=== PATIENT | male | born 1960 | race Caucasian/White ===

== ENCOUNTER 2016-10-27 01:56 | Emergency (ER) | payer BC ==
[2016-10-27] MEDS ORDERED: NORMAL SALINE 1000 ML 1,000 ML IV ONE (03:30)
--- NOTE | 2016-10-27 03:35 | ER Document Report ---
ED General - General Chief Complaint: Head Injury without LOC Stated Complaint: HEAD INJURY Time Seen by Provider: 10/27/16 03:20 Notes: Patient is a 56-year-old male presents with complaint of cramping into the muscles his arms and legs. Been worse at night. She felt a little bit dizzy as well. He thought this may be related to the fact that he hit his head. He says that on Sunday he stood up quickly and hit his head against a cabinet. He denies any new neck pain. He says he has some chronic neck soreness which is unchanged. Patient says she has had just a very mild headache that is intermittent. He is not on blood thinners other than an aspirin. He denies any bruising or swelling to his head. 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 He says there is no air-conditioning. He says it has been hot and he has been sweating while working all day in the shop. No weakness that is worse on the right or left side . No occult ambulating. No vomiting. No other complaints at this time. TRAVEL OUTSIDE OF THE [place] IN LAST 30 DAYS: No Past Medical History - Social History Smoking Status: Never Smoker Frequency of alcohol use: None Drug Abuse: None Family History: Reviewed & Not Pertinent Patient has suicidal ideation: No Patient has homicidal ideation: No Renal/ Medical History: Denies: Hx Peritoneal Dialysis Review of Systems - Review of Systems Notes: My Normal Review Basic REVIEW OF SYSTEMS: CONSTITUTIONAL : Denies fever, chills, or sweats. Denies recent illness.ENT: Denies eye, ear, throat, or mouth pain or symptoms. Denies nasal or sinus congestion. CARDIOVASCULAR: Denies chest pain. RESPIRATORY: Denies cough, cold, or chest congestion. Denies shortness of breath, difficulty breathing, or wheezing. GASTROINTESTINAL: Denies abdominal pain. Denies nausea, vomiting, or diarrhea. Denies constipation. Last BM: GENITOURINARY: Denies difficulty urinating, painful urination, burning, frequency, or blood in urine. MUSCULOSKELETAL: muscle cramps SKIN: Denies rash or skin lesions. HEMATOLOGIC : Denies easy bruising or bleeding. LYMPHATIC: Denies swollen, enlarged glands. NEUROLOGICAL: Denies altered mental status or loss of consciousness. Had a headache. Denies weakness or paralysis or loss of use of either side. Denies problems with gait or speech. Denies sensory or motor loss. ALL OTHER SYSTEMS REVIEWED AND NEGATIVE. Physical Exam - Vital signs Vitals: Temp Pulse Resp BP Pulse Ox 97.7 F 65 18 133/78 H 100 10/27/16 02:14 10/27/16 02:14 10/27/16 02:14 10/27/16 02:14 10/27/16 02:14 - Notes Notes: General Appearance: Well nourished, alert, cooperative, no acute distress, no obvious discomfort. Vitals: reviewed, See vital signs table. Head: no swelling or tenderness to the head Eyes: PERRL, EOMI, Conjuctiva clear Neck: Supple, no reproducible neck tenderness to palpation, Lungs: No wheezing, No rales, No rhonci, No accessory muscle use, good air exchange bilaterally. Heart: Normal rate, Regular rythm, No murmur, no rub Abdomen: Normal BS, soft, No rigidity, No abdominal tenderness, No guarding, no rebound, no abdominal masses, no organomegaly Extremities: strength 5/5 in all extremities, good pulses in all extremities, no swelling or tenderness in the extremities, no edema. Skin: warm, dry, appropriate color, no rash Neuro: speech clear, oriented x 3, normal affect, responds appropriately to questions. Cranial nerves II through XII are intact. Distal sensation intact. Patient moves all extremities without difficulty. Normal gait. Course - Re-evaluation Re-evalutation: 10/27/16 05:37 Patient has received IV fluids. He is feeling better. I did discuss with him CT scan of the head versus no CT scan of the head. At home that we can order CT scan of his head however I do not feel it is indicated at this time being that his injury occurred a week ago, he has not had any vomiting, and no loss of consciousness, and the mechanism of injury is very low. He is also not on any blood thinners and has no history of bleeding disorders. He has no swelling or bruising to the head. The symptoms the patient was concerned with her bilateral and seem to be involved more with muscle cramping than anything else. I suspect this is more likely related to the fact that he has been working in a hot environment without air conditioning for the last several days. This is why give him IV fluids and check his electrolytes. Electrolytes are normal. I informed patient to stay out of the heat for the next few days. I informed him he should return to ER immediately for severe headache, vomiting , or feels unwell. I encouraged him to follow-up with his doctor this coming week. Patient agrees with plan and will be discharged home. Dictation of this chart was performed using voice recognition software; therefore, there may be some unintended grammatical errors. - Vital Signs Vital signs: Temp Pulse Resp BP Pulse Ox 97.7 F 65 18 133/78 H 100 10/27/16 02:14 10/27/16 02:14 10/27/16 02:14 10/27/16 02:14 10/27/16 02:14 - Laboratory Result Diagrams: 10/27/16 03:50 10/27/16 03:50 Laboratory results interpreted by me: 10/27/16 10/27/16 03:50 03:50 RBC 4.27 L Basophils % 2.6 H BUN 25 H Discharge - Discharge Clinical Impression: Muscle cramps, Weakness Minor head injury without loss of consciousness Qualifiers: Encounter type: initial encounter Qualified Code(s): S09.90XA - Unspecified injury of head, initial encounter Condition: Good Disposition: HOME, SELF-CARE Additional Instructions: Please stay out of the heat over the next few days and drink lots of clear liquids. Please return to the ER if you have worsening of your symptoms, fevers , recurrent muscle cramping, any vomiting, or severe headache. Please follow up with your physician on Sunday for reevaluation. Referrals: TAMI PUGH MD [Primary Care Provider] - 10/30/16
[2016-10-27 04:07] LABS: ABSOLUTE BASOPHILS # (AUTO) 0.1 10^3/uL (0.0-0.2); ABSOLUTE EOSINOPHILS # (AUTO) 0.2 10^3/uL (0.0-0.6); ABSOLUTE LYMPHOCYTES (AUTO) 0.8 10^3/uL (0.5-4.7); ABSOLUTE MONOCYTES (AUTO) 0.4 10^3/uL (0.1-1.4); ABSOLUTE NEUT (AUTO) 3.1 10^3/uL (1.7-8.2); BASOPHILS % (AUTO) 2.6 % (0-2); EOSINOPHILS % (AUTO) 3.7 % (0-6); HEMATOCRIT 40.7 % (37.9-51.0); HEMOGLOBIN 13.7 g/dL (13.5-17.0); HGB HCT DIFFERENCE 0.4; LYMPHOCYTES % (AUTO) 16.9 % (13-45); MEAN CORPUSCULAR HEMOGLOBIN 32.1 pg (27.0-33.4); MEAN CORPUSCULAR HGB CONC 33.7 g/dL (32.0-36.0); MEAN CORPUSCULAR VOLUME 95 fl (80-97); MONOCYTES % (AUTO) 8.9 % (3-13); RED BLOOD COUNT 4.27 10^6/uL (4.35-5.55); SEGMENTED NEUTROPHILS % (AUTO) 67.9 % (42-78); WHITE BLOOD COUNT 4.6 10^3/uL (4.0-10.5)
[2016-10-27 04:25] LABS: ANION GAP 9 (5-19); BLOOD UREA NITROGEN 25 mg/dL (7-20); CALCIUM 9.2 mg/dL (8.4-10.2); CARBON DIOXIDE 28 mmol/L (22-30); CHLORIDE 104 mmol/L (98-107); CREATINE KINASE 106 U/L (55-170); CREATININE RESULT 0.88 mg/dL (0.52-1.25); GLUCOSE 102 mg/dL (75-110); MAGNESIUM 2.1 mg/dL (1.6-2.3); POTASSIUM 4.2 mmol/L (3.6-5.0); SODIUM 141.3 mmol/L (137-145)
[2016-10-27 05:50] VITALS: BP 114/71
== END 2016-10-27 05:51 | disposition home or self-care (01) ==
LOC: ER 01:56
DX: S09.90XA Unspecified injury of head, initial encounter (principal); R25.2 Cramp and spasm; R42 Dizziness and giddiness; R53.1 Weakness; W22.09XA Striking against other stationary object, initial encounter; Z79.82 Long term (current) use of aspirin
CPT/HCPCS: 99283; 96360; 36415; 82550; 83735; 85025; 80048; J7030

== ENCOUNTER 2017-03-22 17:28 | Emergency (ER) | payer BC ==
[2017-03-22] MEDS ORDERED: ACETAMINOPHEN 325 MG TABLET PO ONE ×2 (18:07→18:20)
[2017-03-22] MEDS ORDERED: NORMAL SALINE 1000 ML 1,000 ML IV ONE (18:20)
--- NOTE | 2017-03-22 18:24 | ER Document Report ---
ED Medical Screen (RME) - General Chief Complaint: Flu Symptoms Stated Complaint: BODYACHES Time Seen by Provider: 03/22/17 18:20 Notes: Patient has 2 days of fever cough sore throat and generalized body aches. He was diagnosed with an upper respiratory infection by his physician today. He was given Levaquin. He states that he is still feeling very bad and dehydrated so he came to the emergency department. TRAVEL OUTSIDE OF THE [place] IN LAST 30 DAYS: No - Related Data Allergies/Adverse Reactions: iodine Allergy (Verified 03/22/17 17:29) Home Medications: Current Home Medications Aspirin 81 mg PO DAILY 03/22/17 [History] Rosuvastatin Calcium 40 mg PO DAILY 03/22/17 [History] Past Medical History - Social History Chew tobacco use (# tins/day): No Frequency of alcohol use: None Drug Abuse: None Renal/ Medical History: Denies: Hx Peritoneal Dialysis Physical Exam - Vital signs Vitals: Temp Pulse Resp BP Pulse Ox 102.2 F H 93 24 H 123/70 98 03/22/17 17:44 03/22/17 17:44 03/22/17 17:44 03/22/17 17:44 03/22/17 17:44 Course - Vital Signs Vital signs: Temp Pulse Resp BP Pulse Ox 102.2 F H 93 24 H 123/70 98 03/22/17 17:44 03/22/17 17:44 03/22/17 17:44 03/22/17 17:44 03/22/17 17:44
[2017-03-22 18:52] LABS: ABSOLUTE LYMPHOCYTES (AUTO) 0.6 10^3/uL (0.5-4.7); ABSOLUTE MONOCYTES (AUTO) 0.5 10^3/uL (0.1-1.4); ABSOLUTE NEUT (AUTO) 3.9 10^3/uL (1.7-8.2); BASOPHILS % (AUTO) 0.4 % (0-2); EOSINOPHILS % (AUTO) 0.1 % (0-6); HEMOGLOBIN 14.7 g/dL (13.5-17.0); HGB HCT DIFFERENCE 3.1; LYMPHOCYTES % (AUTO) 11.7 % (13-45); MEAN CORPUSCULAR HEMOGLOBIN 33.3 pg (27.0-33.4); MEAN CORPUSCULAR HGB CONC 35.9 g/dL (32.0-36.0); MEAN CORPUSCULAR VOLUME 93 fl (80-97); MONOCYTES % (AUTO) 10.7 % (3-13); RED BLOOD COUNT 4.41 10^6/uL (4.35-5.55); RED CELL DISTRIBUTION WIDTH 12.2 % (11.5-14.0); SEGMENTED NEUTROPHILS % (AUTO) 77.1 % (42-78); VENOUS BLOOD BASE EXCESS 1.4 mmol/L; VENOUS BLOOD HCO3 22.9 mmol/L (20-32); VENOUS BLOOD PCO2 28.2 mmHg (35-63); VENOUS BLOOD PH 7.53 (7.30-7.42); WHITE BLOOD COUNT 5.1 10^3/uL (4.0-10.5)
--- NOTE | 2017-03-22 18:56 | RADIOLOGY REPORT (SQ) ---
EXAM DESCRIPTION: CHEST PA/LAT COMPLETED DATE/TIME: 03/22/2017 6:49 pm REASON FOR STUDY: fever/cough COMPARISON: None. EXAM PARAMETERS: NUMBER OF VIEWS: two views TECHNIQUE: Digital Frontal and Lateral radiographic views of the chest acquired. RADIATION DOSE: NA LIMITATIONS: none FINDINGS: LUNGS AND PLEURA: No opacities, masses or pneumothorax. No pleural effusion. MEDIASTINUM AND HILAR STRUCTURES: No masses or contour abnormalities. HEART AND VASCULAR STRUCTURES: Heart normal size. No evidence for failure. BONES: No acute findings. HARDWARE: None in the chest. OTHER: No other significant finding. IMPRESSION: NO SIGNIFICANT RADIOGRAPHIC FINDING IN THE CHEST. TECHNICAL DOCUMENTATION: JOB ID: [id number] [employer]- All Rights Reserved
[2017-03-22 19:01] LABS: APPEARANCE,URINE SLIGHTLY-CLOUDY; BILIRUBIN,URINE NEGATIVE (NEGATIVE); GLUCOSE, URINE NEGATIVE (NEGATIVE); KETONES,URINE 80 mg/dL (NEGATIVE); LEUKOCYTE ESTERASE,URINE NEGATIVE (NEGATIVE); NITRITE,URINE NEGATIVE (NEGATIVE); PROTEIN,URINE 30 mg/dL (NEGATIVE); URINE SPECIFIC GRAVITY 1.021; UROBILINOGEN,URINE NEGATIVE mg/dL (<2.0)
[2017-03-22 19:11] LABS: ALANINE AMINOTRANSFERASE 36 U/L (21-72); ALBUMIN 4.6 g/dL (3.5-5.0); ALKALINE PHOSPHATASE 53 U/L (38-126); ANION GAP 16 (5-19); ASPARTATE AMINO TRANSFERASE 31 U/L (17-59); BILIRUBIN,DIRECT 0.3 mg/dL (0.0-0.4); BILIRUBIN,TOTAL 0.6 mg/dL (0.2-1.3); BLOOD UREA NITROGEN 16 mg/dL (7-20); CARBON DIOXIDE 20 mmol/L (22-30); CHLORIDE 98 mmol/L (98-107); CREATININE RESULT 0.85 mg/dL (0.52-1.25); GLUCOSE 104 mg/dL (75-110); POTASSIUM 4.3 mmol/L (3.6-5.0); TOTAL PROTEIN 7.3 g/dL (6.3-8.2)
--- NOTE | 2017-03-22 19:14 | ER Document Report ---
ED General - General Chief Complaint: Flu Symptoms Stated Complaint: BODYACHES Time Seen by Provider: 03/22/17 18:20 Notes: Patient is a 56-year-old male without past medical history who presents with 24 hours of fever, sinus pressure, cough, and body aches. He saw his primary care doctor earlier today, was given an intramuscular dose of ceftriaxone and started on levofloxacin for diagnosis of bronchitis. Patient however states that his symptoms have not improved and he feels completely "miserable" prompting him to come to the emergency department he notes that he feels quite nauseated but has not vomited. He has been able to tolerate oral intake at home. He is uncertain if he has had any sick contacts. Nothing improves or worsens his symptoms. TRAVEL OUTSIDE OF THE [place] IN LAST 30 DAYS: No - Related Data Allergies/Adverse Reactions: iodine Allergy (Verified 03/22/17 17:29) Home Medications: Current Home Medications Aspirin 81 mg PO DAILY 03/22/17 [History] Rosuvastatin Calcium 40 mg PO DAILY 03/22/17 [History] Past Medical History - General Information source: Patient - Social History Smoking Status: Former Smoker Chew tobacco use (# tins/day): No Frequency of alcohol use: None Drug Abuse: None Family History: Reviewed & Not Pertinent Patient has suicidal ideation: No Patient has homicidal ideation: No - Past Medical History Cardiac Medical History: Reports: Hx Hypercholesterolemia Renal/ Medical History: Denies: Hx Peritoneal Dialysis Past Surgical History: Reports: Hx Cardiac Surgery - stents, Hx Orthopedic Surgery - bilateral legs Review of Systems - Review of Systems Notes: Constitutional: Positive or fever. HENT: Positive for sore throat. Eyes: Negative for visual changes. Cardiovascular: Negative for chest pain. Respiratory: Negative for shortness of breath. Positive for cough Gastrointestinal: Negative for abdominal pain, positive for nausea Genitourinary: Negative for dysuria. Musculoskeletal: Negative for back pain. Skin: Negative for rash. Neurological: Negative for headaches, weakness or numbness. 10 point ROS negative except as marked above and in HPI. Physical Exam - Vital signs Vitals: Temp Pulse Resp BP Pulse Ox 102.2 F H 93 24 H 123/70 98 03/22/17 17:44 03/22/17 17:44 03/22/17 17:44 03/22/17 17:44 12/14/17 17:44 Interpretation: Tachycardic, Tachypneic Notes: PHYSICAL EXAMINATION: GENERAL: Appears uncomfortable but no acute distress HEAD: Atraumatic, normocephalic. EYES: Pupils equal round and reactive to light, extraocular movements intact, sclera anicteric, conjunctiva are normal. ENT: nares patent, oropharynx clear without exudates. Moist mucous membranes. NECK: Normal range of motion, supple without lymphadenopathy LUNGS: Breath sounds clear to auscultation bilaterally and equal. No wheezes rales or rhonchi. HEART: Regular tachycardia without murmurs ABDOMEN: Soft, nontender, normoactive bowel sounds. No guarding, no rebound. No masses appreciated. EXTREMITIES: Normal range of motion, no pitting or edema. No cyanosis. NEUROLOGICAL: No focal neurological deficits. Moves all extremities spontaneously and on command. PSYCH: Normal mood, normal affect. SKIN: Flushed, mildly diaphoretic, no lesions or rashes Course - Re-evaluation Re-evalutation: 03/22/17 19:14 Patient presents with cough, vomiting, diarrhea, and fever at home consistent with a flulike illness although our flu test here is negative. Sensitivity for this years flu assay is apparently 91-92%. Clinical history and exam is not consistent with an acute bacterial meningitis, encephalitis, pneumonia, there is no evidence of a cellulitis on examination. Patient likewise denies any urinary symptoms. Chest x-ray is clear without any evidence of an acute pneumonia. Urinalysis without any evidence of a pyelonephritis. Patient does not have any focal abdominal tenderness to suggest an acute biliary pathology, acute appendicitis, acute mesenteric ischemia, bowel obstruction, bowel, or any other life-threatening acute intra-abdominal pathology as the etiology of the fever and additional symptoms today. Labs are otherwise unremarkable. Patient is tolerated oral intake without difficulty. Vitals at time of reassessment are within normal limits. At this time will discharge with return precautions and follow-up recommendations. Verbal discharge instructions given a the bedside and opportunity for questions given. Medication warnings reviewed. Patient is in agreement with this plan and has verbalized understanding of return precautions and the need for primary care follow-up in the next 24-72 hours. - Vital Signs Vital signs: Temp Pulse Resp BP Pulse Ox 100.9 F H 88 18 124/75 98 03/22/17 19:02 03/22/17 20:47 03/22/17 20:47 03/22/17 20:47 03/22/17 20:47 - Laboratory Result Diagrams: 03/22/17 18:36 03/22/17 18:36 Laboratory results interpreted by me: 03/22/17 03/22/17 03/22/17 18:36 18:36 18:36 Plt Count 146 L Lymphocytes % 11.7 L VBG pH 7.53 H VBG pCO2 28.2 L Sodium 134.0 L Carbon Dioxide 20 L Urine Protein Urine Ketones 03/22/17 18:43 Plt Count Lymphocytes % VBG pH VBG pCO2 Sodium Carbon Dioxide Urine Protein 30 H Urine Ketones 80 H Discharge - Discharge Clinical Impression: Viral upper respiratory infection Fever Qualifiers: Fever type: unspecified Qualified Code(s): R50.9 - Fever, unspecified Condition: Stable Disposition: HOME, SELF-CARE Additional Instructions: Your symptoms are likely due to a viral infection either influenza or similar virus. The only treatment at this time is supportive care including drinking plenty of fluids, Tylenol and ibuprofen, as well as nausea medicines which you will be sent home with. Your symptoms will likely last for 7-10 days. Please return to the emergency department immediately if you become confused, have persistent vomiting, pass out, have severe headache, or have any other symptoms that are worrisome to you. Follow-up with your primary care doctor in the next several days. Referrals: TAMI PUGH MD [Primary Care Provider] - Follow up as needed
[2017-03-22] MEDS ORDERED: ONDANSETRON ODT 4 MG TAB (6 TAB/DSPK) PO PRN (20:13)
[2017-03-22 20:47] VITALS: BP 124/75
== END 2017-03-22 20:46 | disposition home or self-care (01) ==
LOC: ER 17:28
DX: J02.8 Acute pharyngitis due to other specified organisms (principal); B97.89 Other viral agents as the cause of diseases classified elsewhere; J40 Bronchitis, not specified as acute or chronic; R50.9 Fever, unspecified; J34.89 Other specified disorders of nose and nasal sinuses; R05 Cough; R11.0 Nausea; R00.0 Tachycardia, unspecified; R06.82 Tachypnea, not elsewhere classified; R61 Generalized hyperhidrosis; Z87.891 Personal history of nicotine dependence; Z95.5 Presence of coronary angioplasty implant and graft
CPT/HCPCS: 99284; 96360; 36415; 87040; 87086; 85025; 80053; 81001; 82803; 83605; 87804; 71020; J7030

== ENCOUNTER 2017-11-16 09:42 | Emergency (ER) | payer BC ==
[2017-11-16 09:52] VITALS: BP 129/79
--- NOTE | 2017-11-16 11:19 | ER Document Report ---
ED ENT - General Chief Complaint: Sore Throat Stated Complaint: DIFFICULTY BREATHING Time Seen by Provider: 11/16/17 11:14 Mode of Arrival: Ambulatory Information source: Patient Notes: 57-year-old male presented to ED for complaint of sore throat and feels like his chest is tight when he takes a deep breath. He states 2 weeks ago he had a sore throat and was started on amoxicillin. He stated at that time he had white patches. He states about 7 days ago he called his primary doctor and he just switched him to Augmentin. He still states he has a sore throat and he called his primary doctor today and he told him to come to the emergency room to get checked out. Patient is alert and oriented respirations regular unlabored no tenderness to palpation. He states the pain is tight when he tries to cough or swallow. His O2 sats are 100% his respirations are normal he is afebrile. His throat assessment is negative. TRAVEL OUTSIDE OF THE [place] IN LAST 30 DAYS: No - HPI Patient complains to provider of: Throat problem Onset: Other - 2 weeks Onset/Duration: Better Quality of pain: Achy Severity: Mild Pain Level: 1 Location of pain: Throat, Other - Since he has a tight feeling when he coughs in his upper chest just below his throat Associated symptoms: Runny nose, Sinus pain, Sore throat, Other - A tight feeling his upper chest just below his throat Similar symptoms previously: Yes Recently seen / treated by doctor: Yes - Related Data Allergies/Adverse Reactions: iodine Allergy (Verified 03/22/17 17:29) Past Medical History - General Information source: Patient - Social History Smoking Status: Former Smoker Cigarette use (# per day): No Chew tobacco use (# tins/day): No Smoking Education Provided: No Frequency of alcohol use: Rare Drug Abuse: None 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[employer] Lives with: Alone Family History: Reviewed & Not Pertinent Patient has suicidal ideation: No Patient has homicidal ideation: No - Past Medical History Cardiac Medical History: Reports: Hx Coronary Artery Disease, Hx Hypercholesterolemia Pulmonary Medical History: Reports: None EENT Medical History: Reports: None Endocrine Medical History: Reports: None Renal/ Medical History: Reports: None Malignancy Medical History: Reports None GI Medical History: Reports: None Musculoskeletal Medical History: Reports Hx Arthritis Skin Medical History: Reports None Psychiatric Medical History: Reports: None Traumatic Medical History: Reports: None Infectious Medical History: Reports: None Past Surgical History: Reports: Hx Adenoidectomy, Hx Cardiac Catheterization, Hx Coronary Stent, Hx Myringotomy, Hx Oral Surgery - Dental, Hx Tonsillectomy, Hx Vascular Surgery - Vein stripping in his legs - Immunizations Immunizations up to date: Yes Review of Systems - Review of Systems Constitutional: Recent illness EENT: Sinus discharge, Throat pain Cardiovascular: Other - Tightness at the top of his center chest just below his throat when he coughs Respiratory: Cough Gastrointestinal: No symptoms reported Genitourinary: No symptoms reported Male Genitourinary: No symptoms reported Musculoskeletal: No symptoms reported Skin: No symptoms reported Hematologic/Lymphatic: No symptoms reported Neurological/Psychological: No symptoms reported -: Yes All other systems reviewed and negative Physical Exam - Vital signs Vitals: Temp Pulse Resp BP Pulse Ox 98.1 F 83 20 129/79 H 99 11/16/17 09:50 11/16/17 09:50 11/16/17 09:50 11/16/17 09:50 11/16/17 09:50 Interpretation: Normal - General General appearance: Appears well, Alert - HEENT Head: Normocephalic, Atraumatic Eyes: Normal Pupils: PERRL Ears: Normal External canal: Normal Tympanic membrane: Normal Sinus: Normal Nasal: Swelling, Clear rhinorrhea Mouth/Lips: Normal Pharynx: Post nasal drainage. No: Tonsillar hypertrophy - No tonsils Neck: Normal - Respiratory Respiratory status: No respiratory distress Chest status: Nontender Breath sounds: Nonproductive cough. No: Productive cough, Rales, Rhonchi, Stridor, Wheezing Chest palpation: Normal - Cardiovascular Rhythm: Regular Heart sounds: Normal auscultation Murmur: No - Abdominal Inspection: Normal Distension: No distension Bowel sounds: Normal Tenderness: Nontender Organomegaly: No organomegaly - Back Back: Normal, Nontender - Extremities General upper extremity: Normal inspection, Nontender, Normal color, Normal ROM , Normal temperature General lower extremity: Normal inspection, Nontender, Normal color, Normal ROM , Normal temperature, Normal weight bearing. No: [place]'s sign - Neurological Neuro grossly intact: Yes Cognition: Normal Orientation: AAOx4 K[place] Coma Scale Eye Opening: Spontaneous [place] Coma Scale Verbal: Oriented [place] Coma Scale Motor: Obeys Commands [place] Coma Scale Total: 15 Speech: Normal Motor strength normal: LUE, RUE, LLE, RLE Sensory: Normal - Psychological Associated symptoms: Normal affect, Normal mood - Skin Skin Temperature: Warm Skin Moisture: Dry Skin Color: Normal Course - Re-evaluation Re-evalutation: 11/16/17 21:[address] Cox with his symptoms and assessment, he stated he would need a a mono test and a chest x-ray these were completed and were negative chest x- ray showed a viral illness. Patient was discharged home to follow-up with his primary doctor. Patient is given instructions on upper respiratory infection and treatment. Patient was told to complete his antibiotics as instructed. - Vital Signs Vital signs: Temp Pulse Resp BP Pulse Ox 98.1 F 83 20 129/79 H 99 11/16/17 09:50 11/16/17 09:50 11/16/17 09:50 11/16/17 09:50 11/16/17 09:50 - Diagnostic Test Radiology reviewed: Image reviewed, Reports reviewed Discharge - Discharge Clinical Impression: Sore throat Condition: Stable Disposition: HOME, SELF-CARE Additional Instructions: SORE THROAT: Sore throats may be caused by viruses, bacteria, or fungi. Most are due to a virus, and must get better on their own. Bacterial sore throats, particularly those due to "strep," need treatment with antibiotics. If an antibiotic is prescribed, be sure to take the medication for a full 10 days. Failure to take the antibiotic can result in complications such as rheumatic fever. Sometimes, an injection of antibiotics is given instead of pills or liquid. This single "shot" is equal in effectiveness to the oral medication. To relieve symptoms, take acetaminophen for pain. Sip clear liquids frequently, or eat popsicles or ice chips. Anesthetic sprays or lozenges may help. Make sure the air in the room is not too dry. Avoid using decongestants or antihistamines. Call the doctor if there is no improvement in two days, or if you have difficulty breathing, increasing throat pain, high fever, rash, or frequent vomiting. STEROID MEDICATION: You have been given a medicine of the cortisone/steroid class. This medication is used to control inflammation or allergy. It is usually only given for a short period of time, until the acute process subsides. There are usually no side effects from short-term use of cortisone-like medications. Some persons feel an increased sense of well-being and are not sleepy at bedtime. Long-term use of cortisone medications is best avoided, unless required for a severe condition. If your condition does not remit, or relapses after the course of corticosteroid medication, you should consult your physician. Please continue taking your antibiotics as have been prescribed by your primary doctor. Please call your primary doctor today and get a follow-up appointment. I have given you a dose of steroids today ask your primary doctor if he would like you to have any more after today. FOLLOW-UP CARE: If you have been referred to a physician for follow-up care, call the physician s office for an appointment as you were instructed or within the next two days. If you experience worsening or a significant change in your symptoms, notify the physician immediately or return to the Emergency Department at any time for re-evaluation. Forms: Elevated Blood Pressure, Return to Work Referrals: TAMI PUGH MD [Primary Care Provider] - Follow up as needed
--- NOTE | 2017-11-16 11:55 | RADIOLOGY REPORT (SQ) ---
EXAM DESCRIPTION: CHEST 2 VIEWS COMPLETED DATE/TIME: 11/16/2017 11:46 am REASON FOR STUDY: tightness upper chest continued sore throat COMPARISON: 03/22/2017 EXAM PARAMETERS: NUMBER OF VIEWS: two views TECHNIQUE: Digital Frontal and Lateral radiographic views of the chest acquired. RADIATION DOSE: NA LIMITATIONS: none FINDINGS: LUNGS AND PLEURA: No opacities, masses or pneumothorax. No pleural effusion. MEDIASTINUM AND HILAR STRUCTURES: No masses or contour abnormalities. HEART AND VASCULAR STRUCTURES: Heart normal size. No evidence for failure. BONES: No acute findings. HARDWARE: None in the chest. OTHER: No other significant finding. IMPRESSION: NO ACUTE RADIOGRAPHIC FINDING IN THE CHEST. TECHNICAL DOCUMENTATION: JOB ID: [id number] [employer]- All Rights Reserved Reading location - IP/workstation name: [email or web address]
[2017-11-16] MEDS ORDERED: PREDNISONE 20 MG TABLET PO ONE (12:17)
== END 2017-11-16 12:29 | disposition home or self-care (01) ==
LOC: ER 09:42
DX: J02.9 Acute pharyngitis, unspecified (principal); R07.89 Other chest pain; R05 Cough; J34.89 Other specified disorders of nose and nasal sinuses; R09.82 Postnasal drip; I25.10 Atherosclerotic heart disease of native coronary artery without angina pectoris; Z95.5 Presence of coronary angioplasty implant and graft; Z87.891 Personal history of nicotine dependence
CPT/HCPCS: 36415; 71046; 86308; 99283

== ENCOUNTER 2017-11-27 12:04 | Day surgery (SDC) | payer BC ==
[~2017-11-27 12:04] MED LIST: DIPHENHYDRAMINE HCL 50 MG/ML VIAL ONE; EPINEPHRINE INJ 1 MG/10 ML DISP.SYRIN ONE; FLUMAZENIL INJ 0.5 MG/5 ML VIAL ONE; GLUCAGON,HUMAN RECOMB 1 MG INJ ONE; NALOXONE HCL INJ/PF 0.4 MG/1 ML SDV ONE; ONDANSETRON HCL INJ/PF 4 MG/2 ML SDV ONE
[2017-11-27] MEDS: MIDAZOLAM 2 MG/2 ML INJ ONE ×3 (12:28→12:36)
[2017-11-27] MEDS: FENTANYL CITRATE INJ/PF 100 MCG/2 ML AMPUL ONE ×2 (12:30→12:34)
--- NOTE | 2017-11-27 12:51 | Operative Report ---
Operative Report DATE OF SURGERY: 11/27/17 Operative Report: The risks benefits and alternatives of the procedure explained to the patient in detail and informed consent is obtained .A GIF Olympus video scope was inserted into the patient's mouth and hypopharynx, the esophagus is identified intubated and insufflated, the scope was then advanced through the esophagus stomach and duodenum, retroflexion maneuver is done, the esophagus stomach and first and second portions of the duodenum examined PREOPERATIVE DIAGNOSIS: Dysphagia POSTOPERATIVE DIAGNOSIS: Gastritis status post biopsy rule out Helicobacter pylori. Esophageal rings suggestive of eosinophilic esophagitis status post biopsy. Biopsies also obtained at the distal EG junction for possible Schatzki' s ring OPERATION: EGD with biopsy SURGEON: KRISHNA BARBER ANESTHESIA: Moderate Sedation - 6 mg of Versed, 100 mcg of fentanyl. Conscious sedation monitoring time 30 minutes. TISSUE REMOVED OR ALTERED: As noted. COMPLICATIONS: None. ESTIMATED BLOOD LOSS: None. INTRAOPERATIVE FINDINGS: As noted above. PROCEDURE: Patient tolerated the procedure well. No immediate postprocedure complications are noted. Patient discharged in good condition. Discharge date 11/27/2017. Discharge diet: Regular. Discharge activity: Regular. 2-3 week follow-up to discuss findings. Patient is instructed call the office or proceed to the emergency room should have any further problems or questions. Wait on the pathology.
[2017-11-27 14:02] VITALS: BP 105/71
== END 2017-11-27 14:00 | disposition home or self-care (01) ==
LOC: END 12:04
PROVIDERS: ATTEND Internal Medicine Gastroenterology
DX: K29.50 Unspecified chronic gastritis without bleeding (principal); K22.2 Esophageal obstruction; K20.9 Esophagitis, unspecified; Z79.899 Other long term (current) drug therapy
CPT/HCPCS: 43239; 88305 ×2; 88313 ×2; J2250; J3010; J0171; J1200; J1610; J2310; J2405; J3490

== ENCOUNTER 2018-09-29 15:05 | Emergency (ER) | payer BC ==
--- NOTE | 2018-09-29 16:06 | ER Document Report ---
ED Medical Screen (RME) - General Chief Complaint: Abdominal Pain Stated Complaint: STOMACH PAIN Time Seen by Provider: 09/29/18 15:58 Primary Care Provider: TAMI PUGH MD [Primary Care Provider] - Follow up as needed TRAVEL OUTSIDE OF THE [place] IN LAST 30 DAYS: Yes COUNTRY TRAVELED TO/FROM: [facility] Notes: 09/29/18 16:04 Patient is a 58-year-old male with a history of coronary artery disease with previous stent placement, hypercholesteremia who presents complaining of intermittent loose stool over the past 20 days since returning from [facility]. Patient states that he did have about 3 days where he did not have any symptoms from when he came back to the [facility]. Patient states that he has had daily visits to his mother in a long-term as well and is not sure if he pick something up there. Patient states that he will have some intermittent mid abdominal cramping associated. He is otherwise able to eat and drink without difficulty. He is urinating normally. No melena or hematochezia. No surgical history to his abdomen. Denies LI, fever, neck pain, URI, CP, SOB, dysuria, back pain, or rash. I have treated and performed a rapid initial assessment of this patient. A comprehensive ED assessment and evaluation of the patient, analysis of test results and completion of medical decision making process will be conducted by additional ED providers. PHYSICAL EXAMINATION: GENERAL: Well-appearing, well-nourished and in no acute distress. A&Ox4. Answers questions appropriately. LUNGS: Breath sounds clear to auscultation bilaterally and equal. No wheezes rales or rhonchi. HEART: Regular rate and rhythm without murmurs, rubs, gallops. ABDOMEN: Soft, nondistended abdomen. No guarding, no rebound. Normal bowel sounds present. No CVA tenderness bilaterally. Grossly nontender (cannot elicit thorough abd exam w/o bed, however). NEUROLOGICAL: Normal speech, normal gait. PSYCH: Normal mood, normal affect. - Related Data Allergies/Adverse Reactions: iodine Allergy (Verified 09/29/18 15:07) Anaphylaxis Past Medical History - Social History Chew tobacco use (# tins/day): No Frequency of alcohol use: Occasional Drug Abuse: None - Past Medical History Cardiac Medical History: Reports: Hx Coronary Artery Disease, Hx Hypercholesterolemia Denies: Hx Heart Attack, Hx Hypertension Pulmonary Medical History: Denies: Hx Asthma, Hx Bronchitis, Hx COPD, Hx Pneumonia Neurological Medical History: Denies: Hx Cerebrovascular Accident, Hx Seizures Renal/ Medical History: Denies: Hx Peritoneal Dialysis GI Medical History: Reports: Hx Gastroesophageal Reflux Disease Musculoskeltal Medical History: Reports Hx Arthritis - FINGERS Past Surgical History: Reports: Hx Adenoidectomy, Hx Cardiac Catheterization - stents, Hx Cardiac Surgery - stents, Hx Coronary Stent, Hx Myringotomy, Hx Oral Surgery - Dental, Hx Orthopedic Surgery - bilateral legs, Hx Tonsillectomy, Hx Vascular Surgery - Vein stripping in his legs - Immunizations Immunizations up to date: Yes Hx Diphtheria, Pertussis, Tetanus Vaccination: No Physical Exam - Vital signs Vitals: Temp Pulse Resp BP Pulse Ox 98 F 71 18 154/84 H 97 09/29/18 15:15 09/29/18 15:15 09/29/18 15:15 09/29/18 15:15 09/29/18 15:15 Course - Vital Signs Vital signs: Temp Pulse Resp BP Pulse Ox 98 F 71 18 154/84 H 97 09/29/18 15:15 09/29/18 15:15 09/29/18 15:15 09/29/18 15:15 09/29/18 15:15 Doctor's Discharge - Discharge Referrals: TAMI PUGH MD [Primary Care Provider] - Follow up as needed
[2018-09-29 17:22] LABS: ABSOLUTE EOSINOPHILS # (AUTO) 0.2 10^3/uL (0.0-0.6); ABSOLUTE MONOCYTES (AUTO) 0.4 10^3/uL (0.1-1.4); ABSOLUTE NEUT (AUTO) 2.6 10^3/uL (1.7-8.2); BASOPHILS % (AUTO) 1.1 % (0-2); EOSINOPHILS % (AUTO) 3.8 % (0-6); HEMATOCRIT 41.6 % (37.9-51.0); HEMOGLOBIN 14.4 g/dL (13.5-17.0); LYMPHOCYTES % (AUTO) 24.5 % (13-45); MEAN CORPUSCULAR HEMOGLOBIN 32.2 pg (27.0-33.4); MEAN CORPUSCULAR HGB CONC 34.6 g/dL (32.0-36.0); MEAN CORPUSCULAR VOLUME 93 fl (80-97); MONOCYTES % (AUTO) 9.5 % (3-13); PLATELET COUNT 203 10^3/uL (150-450); RED BLOOD COUNT 4.48 10^6/uL (4.35-5.55); SEGMENTED NEUTROPHILS % (AUTO) 61.1 % (42-78); TOTAL CELLS COUNTED % (AUTO) 100 %; WHITE BLOOD COUNT 4.2 10^3/uL (4.0-10.5)
[2018-09-29 17:38] LABS: ALANINE AMINOTRANSFERASE 33 U/L (21-72); ALBUMIN 4.6 g/dL (3.5-5.0); ALKALINE PHOSPHATASE 53 U/L (38-126); ANION GAP 7 (5-19); ASPARTATE AMINO TRANSFERASE 21 U/L (17-59); BILIRUBIN,DIRECT 0.2 mg/dL (0.0-0.4); BILIRUBIN,TOTAL 0.6 mg/dL (0.2-1.3); BLOOD UREA NITROGEN 20 mg/dL (7-20); CALCIUM 9.6 mg/dL (8.4-10.2); CARBON DIOXIDE 30 mmol/L (22-30); CHLORIDE 102 mmol/L (98-107); GLUCOSE 93 mg/dL (75-110); LIPASE 133.6 U/L (23-300); POTASSIUM 4.4 mmol/L (3.6-5.0); SODIUM 139.2 mmol/L (137-145); TOTAL PROTEIN 7.2 g/dL (6.3-8.2)
[2018-09-29 17:54] LABS: APPEARANCE,URINE CLEAR; BILIRUBIN,URINE NEGATIVE (NEGATIVE); COLOR,URINE STRAW; GLUCOSE, URINE NEGATIVE (NEGATIVE); KETONES,URINE NEGATIVE (NEGATIVE); LEUKOCYTE ESTERASE,URINE TRACE (NEGATIVE); NITRITE,URINE NEGATIVE (NEGATIVE); PROTEIN,URINE NEGATIVE (NEGATIVE); URINE SPECIFIC GRAVITY 1.005; UROBILINOGEN,URINE NEGATIVE mg/dL (<2.0)
[2018-09-29] MEDS ORDERED: CIPROFLOXACIN HCL 500 MG TABLET PO ONE (19:14)
--- NOTE | 2018-09-29 19:19 | ER Document Report ---
ED General - General Chief Complaint: Abdominal Pain Stated Complaint: STOMACH PAIN Time Seen by Provider: 09/29/18 15:58 Primary Care Provider: TAMI PUGH MD [Primary Care Provider] - Follow up as needed Notes: Patient is a 58-year-old male with a history of coronary artery disease with previous stent placement, hypercholesteremia who presents complaining of intermittent loose stool over the past 20 days since returning from [facility]. Patient states that he will have some intermittent mid abdominal cramping a ssociated. Pain is very mild, intermittent in nature. Nothing seems to worsen his symptoms. States he took Pepto-Bismol with some improvement. He is otherwise able to eat and drink without difficulty. States that she has a good appetite. Has not had fever or constitutional symptoms. Nothing is new or different otherwise prompted him to come to the emergency department today. He is urinating normally. No melena or hematochezia. No surgical history to his abdomen. TRAVEL OUTSIDE OF THE [place] IN LAST 30 DAYS: Yes COUNTRY TRAVELED TO/FROM: [facility] - Related Data Allergies/Adverse Reactions: iodine Allergy (Verified 09/29/18 15:07) Anaphylaxis Past Medical History - General Information source: Patient - Social History Smoking Status: Never Smoker Chew tobacco use (# tins/day): No Frequency of alcohol use: Occasional Drug Abuse: None Lives with: Alone Family History: Reviewed & Not Pertinent Patient has suicidal ideation: No Patient has homicidal ideation: No - Past Medical History Cardiac Medical History: Reports: Hx Coronary Artery Disease, Hx Hypercholesterolemia Denies: Hx Heart Attack, Hx Hypertension Pulmonary Medical History: Denies: Hx Asthma, Hx Bronchitis, Hx COPD, Hx Pneumonia Neurological Medical History: Denies: Hx Cerebrovascular Accident, Hx Seizures Renal/ Medical History: Denies: Hx Peritoneal Dialysis GI Medical History: Reports: Hx Gastroesophageal Reflux Disease Musculoskeletal Medical History: Reports Hx Arthritis - FINGERS Past Surgical History: Reports: Hx Adenoidectomy, Hx Cardiac Catheterization - stents, Hx Cardiac Surgery - stents, Hx Coronary Stent, Hx Myringotomy, Hx Oral Surgery - Dental, Hx Orthopedic Surgery - bilateral legs, Hx Tonsillectomy, Hx Vascular Surgery - Vein stripping in his legs - Immunizations Immunizations up to date: Yes Hx Diphtheria, Pertussis, Tetanus Vaccination: No Review of Systems - Review of Systems Notes: Constitutional: Negative for fever. HENT: Negative for sore throat. Eyes: Negative for visual changes. Cardiovascular: Negative for chest pain. Respiratory: Negative for shortness of breath. Gastrointestinal: Positive for abdominal cramping, diarrhea Genitourinary: Negative for dysuria. Musculoskeletal: Negative for back pain. Skin: Negative for rash. Neurological: Negative for headaches, weakness or numbness. 10 point ROS negative except as marked above and in HPI. Physical Exam - Vital signs Vitals: Temp Pulse Resp BP Pulse Ox 98 F 71 18 154/84 H 97 09/29/18 15:15 09/29/18 15:15 09/29/18 15:15 09/29/18 15:15 09/29/18 15:15 Interpretation: Hypertensive Notes: PHYSICAL EXAMINATION: GENERAL: Well-appearing, well-nourished and in no acute distress. HEAD: Atraumatic, normocephalic. EYES: Pupils equal round and reactive to light, extraocular movements intact, sclera anicteric, conjunctiva are normal. ENT: nares patent, oropharynx clear without exudates. Moist mucous membranes. NECK: Normal range of motion, supple without lymphadenopathy LUNGS: Breath sounds clear to auscultation bilaterally and equal. No wheezes rales or rhonchi. HEART: Regular rate and rhythm without murmurs ABDOMEN: Soft, nontender, normoactive bowel sounds. No guarding, no rebound. No masses appreciated. EXTREMITIES: Normal range of motion, no pitting or edema. No cyanosis. NEUROLOGICAL: No focal neurological deficits. Moves all extremities spontaneou sly and on command. PSYCH: Normal mood, normal affect. SKIN: Warm, Dry, normal turgor, no rashes or lesions noted. Course - Re-evaluation Re-evalutation: 09/29/18 19:17 Patient presents with approximately 3 weeks of intermittent abdominal cramping and diarrhea without vomiting. He has no focal abdominal tenderness no rebound or guarding on exam. Vitals are within normal limits. Labs are completely unremarkable. Patient is only having 3-4 bowel movements daily, unable to provide a stool sample here in the emergency department for further testing. He has no evidence of hepatitis, renal dysfunction, or like could have normality. Given the patient has been having symptoms for 3 weeks I think it is reasonable to treat him with a brief course of ciprofloxacin to exclude a bacterial colitis as the etiology of his presentation today. I have advised that should this be unsuccessful he should follow-up for formal stool testing. Given long duration of symptoms, absence of abdominal pain at time of presentation or on palpation very low clinical suspicion for any form of surgical pathology. At this time will discharge with return precautions and follow-up recommendations. Verbal discharge instructions given a the bedside and opportunity for questions given. Medication warnings reviewed. Patient is in agreement with this plan and has verbalized understanding of return precautions and the need for primary care f ollow-up in the next 24-72 hours. - Vital Signs Vital signs: Temp Pulse Resp BP Pulse Ox 98 F 71 18 154/84 H 97 09/29/18 15:15 09/29/18 15:15 09/29/18 15:15 09/29/18 15:15 09/29/18 15:15 - Laboratory Result Diagrams: 09/29/18 17:08 09/29/18 17:08 Laboratory results interpreted by me: 09/29/18 17:05 Ur Leukocyte Esterase TRACE H Discharge - Discharge Clinical Impression: Abdominal cramping Diarrhea Qualifiers: Diarrhea type: presumed infectious Qualified Code(s): R19.7 - Diarrhea, unspecified Condition: Good Disposition: HOME, SELF-CARE Additional Instructions: Please take antibiotics as prescribed. If this does not resolve your diarrhea, please follow-up with your primary care physician for formal stool testing for further evaluation. Return to the emergency department immediately if you develop progressive abdominal pain, fever greater than 101 F, persistent vomiting, pass out, began having blood in your stool, or have any other symptoms that are worrisome to you. Prescriptions: Ciprofloxacin HCl [Cipro 500 mg Tablet] 500 mg PO BID #6 tablet Referrals: TAMI PUGH MD [Primary Care Provider] - Follow up in 3-5 days
[2018-09-29 19:27] VITALS: BP 129/85
== END 2018-09-29 19:28 | disposition home or self-care (01) ==
LOC: ER 15:05
DX: R10.9 Unspecified abdominal pain (principal); R19.7 Diarrhea, unspecified; I25.10 Atherosclerotic heart disease of native coronary artery without angina pectoris
CPT/HCPCS: 36415; 80053; 81001; 83690; 85025; 99284

== ENCOUNTER → 2019-05-22 | Outpatient (CLI) | payer SELFPAY ==
--- NOTE | 2019-05-23 08:44 | RADIOLOGY REPORT (SQ) ---
EXAM DESCRIPTION: U/S SCROTUM W/O DOPPLER COMPLETED DATE/TIME: 05/22/2019 6:10 pm REASON FOR STUDY: D29.4 BENIGN NEOPLASM OF SCROTUM D29.4 BENIGN NEOPLASM OF SCROTUM COMPARISON: 01/24/2011. TECHNIQUE: Static and realtime tinajero scale imaging of the scrotum and testes. Selected color Doppler and spectral images recorded to document blood flow. LIMITATIONS: None. FINDINGS: RIGHT: TESTICLE: Normal size. Normal echotexture. Normal blood flow. No mass. EPIDIDYMIS: Normal. HYDROCELE OR VARICOCELE: Mild hydrocele. HERNIA OR EXTRA-TESTICULAR MASS: No. OTHER: No other significant finding. LEFT: TESTICLE: Normal size. Normal echotexture. Normal blood flow. No mass. EPIDIDYMIS: Normal. HYDROCELE OR VARICOCELE: Prominent vessels suggestive of varicocele. HERNIA OR EXTRA-TESTICULAR MASS: No. OTHER: No other significant finding. IMPRESSION: Left varicocele. No evidence of torsion. No solid mass. TECHNICAL DOCUMENTATION: JOB ID: [id number] 2010 [employer]- All Rights Reserved Reading location - IP/workstation name: [email or web address]
== END ==
LOC: RAD 17:16
PROVIDERS: ATTEND Internal Medicine
DX: D29.4 Benign neoplasm of scrotum (principal)
CPT/HCPCS: 76870